=== PATIENT | female | born 1930 | race Caucasian/White ===

== ENCOUNTER 2017-11-03 12:41 | Emergency (ER) | payer MEDICARE, BC ==
--- NOTE | 2017-11-03 12:44 | EDM.PDOC ---
ED HPI GENERAL MEDICAL PROBLEM - General Chief Complaint: Neuro Symptoms/Deficits Stated Complaint: ? STROKE Time Seen by Provider: 11/03/17 12:44 Source of Information: Reports: Patient, Family, RN, RN Notes Reviewed History Limitations: Reports: No Limitations - History of Present Illness INITIAL COMMENTS - FREE TEXT/NARRATIVE: Arrives from home by POV with c/o "possible stroke". Pt report a non-injury ground level fall at approx. 2100HRS yesterday while leaning over her walker to hang a pair of pants on a dryer rack. Pt was unable to get herself up off the floor due to right sided weakness. She reports being on the floor for approx. 1 hour. She eventually was able to crawl/drag herself to the phone and call her grandson. The grandson went and helped her up and checked her out, and finding no significant injuries, he put her to bed. This morning he found her weak on the right side, with slightly slurred speech, and right facial droop. Pt denies headache, head injury, visual changes, or difficulty swallowing. Denies chest pain, palpitations, lightheadedness, dizziness, or syncope. Onset: Unknown/Unsure Onset Date: 11/02/17 Onset Time: 21:00 (approx. time) Duration: Constant Location: Reports: Face, Lower Extremity, Left, Lower Extremity, Right, Other ( speech) Quality: Reports: Other (denies pain) Severity: Moderate Improves with: Reports: None Worsens with: Reports: None Associated Symptoms: Reports: No Other Symptoms - Related Data Home Meds: Home Meds Atenolol 50 mg PO DAILY 11/03/17 [History] Felodipine [Felodipine ER] 5 mg PO DAILY 11/03/17 [History] Furosemide 20 mg PO 11/03/17 [History] Levothyroxine 25 mcg PO DAILY 11/03/17 [History] Omeprazole 20 mg PO DAILY 11/03/17 [History] Past Medical History HEENT History: Reports: Impaired Vision Musculoskeletal History: Reports: Osteoarthritis 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 ED EXAM, NEURO - Physical Exam Exam: See Below Exam Limited By: No Limitations General Appearance: Alert, WD/WN, No Apparent Distress Eye Exam: Bilateral Eye: EOMI, Normal Inspection, PERRL Ears: Normal External Exam, Normal Canal, Hearing Loss (chronic/stable) Nose: Normal Inspection, Normal Mucosa, No Blood Throat/Mouth: Normal Lips, Normal Oropharynx, No Airway Compromise, Other ( dentures) Head Exam: Atraumatic, Normocephalic Neck: Normal Inspection, Supple, Non-Tender, Full Range of Motion Respiratory/Chest: No Respiratory Distress, Lungs Clear, Normal Breath Sounds, No Accessory Muscle Use, Chest Non-Tender Cardiovascular: Regular Rate, Rhythm, No Edema, No JVD GI/Abdominal: Normal Bowel Sounds, Soft, Non-Tender, No Distention, Pelvis Stable. No: Guarding, Rigid, Rebound (Female) Exam: Deferred Rectal (Female) Exam: Deferred Neurological: Alert, Normal Mood/Affect, Normal Dorsiflexion, Normal Plantar Flexion, No Motor/Sensory Deficits, Oriented x 3, Other (CN II-XII intact except of slight Rt facail droop at the angle of the mouth, pt feels her speech is slightly slurred.) Back Exam: Normal Inspection Extremities: Normal Inspection, Normal Range of Motion, Non-Tender, No Pedal Edema, Normal Capillary Refill Psychiatric: Normal Affect, Normal Mood Skin Exam: Warm, Dry, Normal Color, No Rash, Wound/Incision (small very superficial abrasion to left 4th and 5th fingers) EKG INTERPRETATION EKG Date: 11/03/17 Time: 12:54 Rhythm: Other (SR) Rate (Beats/Min): 76 [place]: LAD-Left [place] Deviation (borderline) P-Wave: Present QRS: Other (abnl. R progression) ST-T: Normal QT: Normal Comparison: NA - No Prior EKG Course - Vital Signs Last Recorded V/S: Last Vital Signs Temp 37.6 C 11/03/17 12:46 Pulse 76 11/03/17 12:46 Resp 18 11/03/17 12:46 BP 197/73 H 11/03/17 12:46 Pulse Ox 95 11/03/17 12:46 - Orders/Labs/Meds Orders: Active Orders 24 hr Category Date Time Status Blood Glucose Check, Bedside [RC] ONETIME Care 11/03/17 12:52 Active EKG 12 Lead [EKG Documentation Completion] [RC] STAT Care 11/03/17 12:52 Active NIH Stroke Scale [RC] ASDIRECTED Care 11/03/17 12:53 Active Peripheral IV Care [RC] . DIRECTED Care 11/03/17 12:52 Active Head wo Cont [CT] Stat Exams 11/03/17 12:50 Taken UA W/MICROSCOPIC [URIN] Stat Lab 11/03/17 14:21 Ordered Sodium Chloride 0.9% [Saline Flush] Med 11/03/17 12:52 Active 10 ml FLUSH ASDIRECTED PRN Peripheral IV Insertion Adult [OM.PC] Stat Oth 11/03/17 12:52 Ordered Medication Orders Sodium Chloride (Saline Flush) 10 ml FLUSH ASDIRECTED PRN PRN Reason: Keep Vein Open Last Admin: 11/03/17 15:00 Dose: 10 ml Labs: Laboratory Tests 11/03/17 11/03/17 11/03/17 Range/Units 13:18 13:26 13:26 WBC 6.2 (5.0-10.0) 10^3/uL RBC 4.20 (4.2-5.4) 10^6/uL Hgb 12.6 (12.0-16.0) g/dL Hct 38.3 (37.0-47.0) % MCV 91.2 (80-100) fL MCH 30.0 (27.0-34.0) pg MCHC 32.9 L (33.0-35.0) g/dL Plt Count 165 (150-450) 10^3/uL Neut % (Auto) 45.2 (42.2-75.2) % Lymph % (Auto) 37.8 (20.5-50.1) % [place] % (Auto) 14.1 H (2-8) % Eos % (Auto) 2.1 (1.0-3.0) % Baso % (Auto) 0.8 (0.0-1.0) % PT 10.1 (9.0-12.0) SEC INR 1.0 (0.9-1.2) APTT 22.0 (22.0-34.0) SEC Sodium (135-145) mmol/L Potassium (3.6-5.0) mmol/L Chloride (101-111) mmol/L Carbon Dioxide (21.0-31.0) mmol/L Anion Gap BUN (7-18) mg/dL Creatinine (0.6-1.3) mg/dL Est Cr Clr Drug Dosing mL/min Estimated GFR (MDRD) BUN/Creatinine Ratio Glucose (74-105) mg/dL POC Glucose 98 (83-110) mg/dl Calcium (8.4-10.2) mg/dl Magnesium (1.8-2.5) mg/dL Total Bilirubin (0.2-1.0) mg/dL AST (10-42) IU/L ALT (10-60) IU/L Alkaline Phosphatase (42-121) IU/L Creatine Kinase (26-174) IU/L Troponin I (0.00-0.02) ng/ml Total Protein (6.7-8.2) g/dl Albumin (3.2-5.5) g/dl Globulin Albumin/Globulin Ratio Urine Color (YELLOW) Urine Appearance (CLEAR) Urine pH (5.0-9.0) Ur Specific [place] (1.005-1.030) Urine Protein (NEGATIVE) Urine Glucose (UA) (NEGATIVE) Urine Ketones (NEGATIVE) Urine Occult Blood (NEGATIVE) Urine Nitrite (NEGATIVE) Urine Bilirubin (NEGATIVE) Urine Urobilinogen (0.2-1.0) mg/dL Ur Leukocyte Esterase (NEGATIVE) Urine RBC /HPF Urine WBC (0-5/HPF) /HPF Ur Epithelial Cells /HPF Amorphous Sediment (0/HPF) /HPF Urine Bacteria (0-FEW/HPF) /HPF Urine Mucus /LPF 11/03/17 11/03/17 Range/Units 13:26 14:21 WBC (5.0-10.0) 10^3/uL RBC (4.2-5.4) 10^6/uL Hgb (12.0-16.0) g/dL Hct (37.0-47.0) % MCV (80-100) fL MCH (27.0-34.0) pg MCHC (33.0-35.0) g/dL Plt Count (150-450) 10^3/uL Neut % (Auto) (42.2-75.2) % Lymph % (Auto) (20.5-50.1) % [place] % (Auto) (2-8) % Eos % (Auto) (1.0-3.0) % Baso % (Auto) (0.0-1.0) % PT (9.0-12.0) SEC INR (0.9-1.2) APTT (22.0-34.0) SEC Sodium 139 (135-145) mmol/L Potassium 4.0 (3.6-5.0) mmol/L Chloride 105 (101-111) mmol/L Carbon Dioxide 25.0 (21.0-31.0) mmol/L Anion Gap 13.0 BUN 20 H (7-18) mg/dL Creatinine 0.7 (0.6-1.3) mg/dL Est Cr Clr Drug Dosing 39.90 mL/min Estimated GFR (MDRD) > 60 BUN/Creatinine Ratio 28.57 Glucose 108 H (74-105) mg/dL POC Glucose (83-110) mg/dl Calcium 8.9 (8.4-10.2) mg/dl Magnesium 1.9 (1.8-2.5) mg/dL Total Bilirubin 1.1 H (0.2-1.0) mg/dL AST 32 (10-42) IU/L ALT 20 (10-60) IU/L Alkaline Phosphatase 40 L (42-121) IU/L Creatine Kinase 286 H (26-174) IU/L Troponin I < 0.02 (0.00-0.02) ng/ml Total Protein 6.7 (6.7-8.2) g/dl Albumin 3.9 (3.2-5.5) g/dl Globulin 2.8 Albumin/Globulin Ratio 1.39 Urine Color Yellow (YELLOW) Urine Appearance Cloudy (CLEAR) Urine pH 6.0 (5.0-9.0) Ur Specific [place] 1.020 (1.005-1.030) Urine Protein Trace H (NEGATIVE) Urine Glucose (UA) Negative (NEGATIVE) Urine Ketones 40 H (NEGATIVE) Urine Occult Blood Moderate H (NEGATIVE) Urine Nitrite Negative (NEGATIVE) Urine Bilirubin Small H (NEGATIVE) Urine Urobilinogen 1.0 (0.2-1.0) mg/dL Ur Leukocyte Esterase Large H (NEGATIVE) Urine RBC 30-40 H /HPF Urine WBC >100 H (0-5/HPF) /HPF Ur Epithelial Cells Moderate H /HPF Amorphous Sediment Moderate H (0/HPF) /HPF Urine Bacteria Many H (0-FEW/HPF) /HPF Urine Mucus Many H /LPF Meds: Medications Generic Name Dose Route Start Last Admin Trade Name Freq PRN Reason Stop Dose Admin Sodium Chloride 10 ml 11/03/17 12:52 11/03/17 15:00 Saline Flush FLUSH 10 ml ASDIRECTED PRN Administration Keep Vein Open Discontinued Medications Generic Name Dose Route Start Last Admin Trade Name Freq PRN Reason Stop Dose Admin Aspirin 324 mg 11/03/17 14:41 11/03/17 14:59 Aspirin PO 11/03/17 14:42 324 mg ONETIME ONE Administration Ceftriaxone Sodium 1 gm 11/03/17 14:41 11/03/17 15:00 Rocephin IVPUSH 11/03/17 14:42 1 gm ONETIME ONE Administration - Radiology Interpretation Free Text/Narrative:: [facility] Final Radiology Report Call: [phone] assistance Online chat: [email or web address] Name: JONNATHAN RODRIGEZ Age: 87Years F Date: 11/03/2017 SSN: -- : [id number] Study: CT HEAD WO Requesting Physician: Aaron Tian Images: 74 Addl Studies: Provided Clinical History: right sided weakness, slurred speech, onset approx. 2100 hrs 11/02/2017 Contrast: Without Contrast Medium: Contrast Amount: Contrast Method: Page 1 of 2 EXAM: CT Head Without Intravenous Contrast EXAM DATE/TIME: 11/03/2017 1:02 PM CLINICAL HISTORY: The patient is 87 years old and is female; Signs and symptoms; Speech disturbance and weakness, extremity; Right; Slurred speech; Additional info: Right sided weakness, slurred speech, onset approx. 2100 hrs 11/02/2017 TECHNIQUE: Axial computed tomography images of the head/brain without intravenous contrast. All CT scans at this facility use one or more dose reduction techniques, viz.: automated exposure control; ma/kV adjustment per patient size (including targeted exams where dose is matched to indication; i.e. head); or iterative reconstruction technique. COMPARISON: No relevant prior studies available. FINDINGS: Brain: Moderate degrees of lucency in the white matter are most suggestive of chronic microvascular ischemic disease. Lacunar infarcts are present in the bilateral basal ganglia and thalami. A prior infarct involves the left aspect of the [place]lexander. No hemorrhage. Ventricles: The ventricles and sulci are mildly prominent, in concordance with mild global atrophy. Bones/joints: Unremarkable. No acute fracture. Soft tissues: Unremarkable. Vasculature: Intracranial atherosclerotic vascular calcifications are noted. Sinuses: Unremarkable as visualized. No acute sinusitis. Mastoid air cells: There is opacification of some mastoid air cells bilaterally. JONNATHAN RODRIGEZ | Final Radiology Report CONFIDENTIALITY STATEMENT This report is intended only for use by the referring physician, and only in accordance with law. If you received this in error, call [phone]. Page 2 of 2 IMPRESSION: 1. Chronic changes without CT evidence for acute intracranial abnormality. Early cerebral infarct may be CT occult in the first 12 hours. 2. Partial bilateral mastoid air cell opacification, of indeterminate chronicity and significance. Thank you for allowing us to participate in the care of your patient. Dictated and Authenticated by: Kenneth Diaz MD 11/03/2017 1:19 PM Central Time ([place] & [place] A) CT Results Date: 11/03/17 CT Results Time: 13:22 Departure - Departure Time of Disposition: 14:15 Disposition: DC/Tfer to Acute Hospital 02 Condition: Serious Clinical Impression: Cerebrovascular accident (CVA) Qualifiers: CVA mechanism: unspecified Qualified Code(s): I63.9 - Cerebral infarction, unspecified UTI (urinary tract infection) Qualifiers: Urinary tract infection type: site unspecified Hematuria presence: without hematuria Qualified Code(s): N39.0 - Urinary tract infection, site not specified - Discharge Information Referrals: PCP,None [Primary Care Provider] - Forms: ED Department Discharge, Interfacility Transfer EMTALA - My Orders Last 24 Hours: My Active Orders 11/03/17 12:50 Head wo Cont [CT] Stat 11/03/17 12:52 Blood Glucose Check, Bedside [RC] ONETIME EKG 12 Lead [EKG Documentation Completion] [RC] STAT Peripheral IV Care [RC] . DIRECTED Sodium Chloride 0.9% [Saline Flush] 10 ml FLUSH ASDIRECTED PRN Peripheral IV Insertion Adult [OM.PC] Stat 11/03/17 12:53 NIH Stroke Scale [RC] ASDIRECTED 11/03/17 14:21 UA W/MICROSCOPIC [URIN] Stat - Assessment/Plan Last 24 Hours: My Active Orders 11/03/17 12:50 Head wo Cont [CT] Stat 11/03/17 12:52 Blood Glucose Check, Bedside [RC] ONETIME EKG 12 Lead [EKG Documentation Completion] [RC] STAT Peripheral IV Care [RC] . DIRECTED Sodium Chloride 0.9% [Saline Flush] 10 ml FLUSH ASDIRECTED PRN Peripheral IV Insertion Adult [OM.PC] Stat 11/03/17 12:53 NIH Stroke Scale [RC] ASDIRECTED 11/03/17 14:21 UA W/MICROSCOPIC [URIN] Stat
[2017-11-03] MEDS ORDERED: Sodium Chloride 0.9% 10 ML Syringe FLUSH PRN (12:52)
[2017-11-03 13:53] LABS: CHLORIDE,CL 105 mmol/L (101-111); SODIUM,NA 139 mmol/L (135-145)
[2017-11-03] MEDS ORDERED: cefTRIAXone 1 GM Vial IVPUSH ONE (14:41)
[2017-11-03] MEDS ORDERED: Aspirin 81 MG Tab.Chew PO ONE (14:41)
== END 2017-11-03 16:35 ==
LOC: DL.ED 12:41
DX: I63.9 Cerebral infarction, unspecified (principal); N39.0 Urinary tract infection, site not specified; S60.415A Abrasion of left ring finger, initial encounter; S60.417A Abrasion of left little finger, initial encounter; W19.XXXA Unspecified fall, initial encounter
CPT/HCPCS: 36415; 70450; 80053; 81001; 82550; 82962; 83735; 84484; 85025; 85610; 85730; 93005; 93010; 96374; 99284; 99285; A9270; J0696; J7050